=== PATIENT | female | born 2000 | race Two or more races ===

== ENCOUNTER 2022-09-22 15:10 | Outpatient (REF) | payer OTHER, SELFPAY ==
[2022-09-22 15:49] LABS: COVID-19 Test Negative (Negative)
== END 2022-09-22 15:11 | disposition home or self-care (01) ==
LOC: HO.LAB 15:10
PROVIDERS: Visit Provider Internal Medicine
DX: Z20.822 Contact with and (suspected) exposure to COVID-19 (principal)
CPT/HCPCS: 87635; C9803

== ENCOUNTER 2023-08-22 15:37 | Outpatient (AMB) | payer OTHER, SELFPAY ==
[2023-08-22 16:30] VITALS: BP 124/82; PULSE 104; TEMP 36.7; O2SAT 98; BMI 40.0
--- NOTE | 2023-08-22 16:30 | AM.OFFWIN_ITS ---
Intake Vital Signs 08/22/23 16:30 Height 4 ft 11 in Weight 198 lb 4 oz BMI 40.0 BP 124/82 Blood Pressure Location Rt brachial Position Sitting Pulse 104 H Pulse Source Pulse Oximeter Temp 98.1 F Temp Source Oral Pulse Oximetry (%) 98 Oxygen Delivery Method Room Air Intake Visit Reasons: EP, headache, nausea [phone] Intake Note: Pt presents to the office today for c/o headache,tiredness, and nausea. Pt states she also is 5 days late for her menstrual cycle. Allergies No Known Allergies [No Known Allergies*] Allergy (Unverified 08/25/23 05:30) Medication List - Last Reconciled 08/25/23 by Alex Burgess MD pantoprazole 40 mg PO DAILY HPI EP, headache, nausea [phone] HPI Details 22-year-old female presents to the [facility] for a sick visit. Patient works at the local [employer]. She is complaining of epigastric dis comfort, nausea and headaches. Reports symptoms of belching and burping. She is also 5 days late for the onset of her menstrual cycle. [facility] Social History Household Members: Significant Other and Children Housing: Apartment Alcohol intake: never Patient Tobacco Use Status: Never used Tobacco Use of substances other than those prescribed or required for medical reasons: Yes Substance Use Type: Marijuana Physical Exam Vital Signs: Last Vital Signs Temp 98.1 F 08/22/23 16:30 Pulse 104 H 08/22/23 16:30 BP 124/82 08/22/23 16:30 Pulse Ox 98 08/22/23 16:30 Oxygen Delivery Method Room Air 08/22/23 16:30 BMI result Body Mass Index 40.0 Const General: cooperative and healthy appearing Nutritional Appearance: well nourished Orientation/consciousness: patient oriented x3 Limitations: no limitations HEENT Head: Yes normal to inspection Eyes General: appearance normal, both eyes and all related structures Neck Neck: Yes normal visual inspection Chest Chest palpation & inspection: normal palpation of entire chest wall Resp Effort & Inspection: normal respiratory effort Neuro General: patient oriented x3 Results AMB Test Urine AMB Test Urine Negative Last Edit by Coby Gómez MA on 08/22/23 16:42 AMB Urinalysis, Automated UA Leukoctes 70 Rubi/uL Last Edit by Coby Gómez MA on 08/22/23 16:43 UA Nitrite Negative Last Edit by Coby Gómez MA on 08/22/23 16:43 UA Urobilinogen 0.2 mg/dL Last Edit by Coby Gómez MA on 08/22/23 16:43 UA Protein 0 mg/dL Last Edit by Coby Gómez MA on 08/22/23 16:43 UA pH 6.0 Last Edit by Coby Gómez MA on 08/22/23 16:43 UA Blood 10 Saurabh/uL Last Edit by Coby Gómez MA on 08/22/23 16:43 UA Specific [place] 1.025 Last Edit by Coby Gómez MA on 08/22/23 16:43 UA Ketone Positive Last Edit by Coby Gómez MA on 08/22/23 16:43 UA Bilirubin 0 mg/dL Last Edit by Coby Gómez MA on 08/22/23 16:43 UA Glucose 0 mg/dL Last Edit by Coby Gómez MA on 08/22/23 16:43 Results Reviewed Results Reviewed: Laboratory Last Values Urine pH (Auto) 6.0 08/22/23 16:40 Specific [place] (Auto) 1.025 08/22/23 16:40 Urine Protein (Auto) 0 mg/dL 08/22/23 16:40 Glucose (UA)(Auto) 0 mg/dL 08/22/23 16:40 Urine Ketones (Auto) Positive 08/22/23 16:40 Urine Blood (Auto) 10 Saurabh/uL 08/22/23 16:40 Urine Nitrite (Auto) Negative 08/22/23 16:40 Urine Bilirubin (Auto) 0 mg/dL 08/22/23 16:40 Urine Urobilinogen (Auto) 0.2 mg/dL 08/22/23 16:40 Leukocyte Esterase (Auto) 70 Rubi/uL 08/22/23 16:40 [facility] Negative 08/22/23 16:40 Assessment & Plan Assessment & Plan (1) Abdominal pain: Code(s): R10.9 - Unspecified abdominal pain Plan: Symptoms could be due to gastritis. PPI started. Patient was advised to take medications for 2 weeks. Symptoms do not improve or are progressively worsening to follow-up here. (2) Secondary amenorrhea: Code(s): N91.1 - Secondary amenorrhea Plan: test is negative. 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 Orders: Orders AMB HCG Urine Test 08/22/23 Z32.02 - Encounter for test, result negative AMB Urinalysis Automated 08/22/23 Z13.9 - Encounter for screening, unspecified Medications: New pantoprazole 40 mg PO DAILY 14 tabs 0RF Coding Level of Care Code Est Pt Level 3 (06695) Diagnoses Abdominal pain R10.9 Secondary amenorrhea N91.1
== END 2023-08-22 16:58 | disposition home or self-care (01) ==
PROVIDERS: PCP Internal Medicine
DX: Z32.02 Encounter for pregnancy test, result negative (principal); R10.9 Unspecified abdominal pain
CPT/HCPCS: 81003; 81025; 99213

== ENCOUNTER 2023-09-08 14:14 | Outpatient (AMB) | payer OTHER, SELFPAY ==
[2023-09-08 14:18] VITALS: BP 112/82; BMI 37.6
--- NOTE | 2023-09-08 14:18 | A.OFFVIS_ITS ---
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 She is happy about the she has been having a lot of nausea the last couple of days so she would like some medication for that. She delivered her 1st baby with us in October of 2019. She said she got very good care and so she was very sad to hear the birthing center closed and she cried over. She said she had absolutely no complications at all during her other than she was 2 weeks late and she was being induced for her delivery and it was taking a very long time she was stuck at 8 cm for a while and then when she did deliver she had a hemorrhage and her placenta was stuck and the doctor had to reaches hand way up inside to get everything out and she had a QBL of 900 is cc per the record and she received a blood transfusion she says of 2 units. She had no complications before that or since. She has a sure LMP of 07/16/2023 which makes her 7 weeks and 5 days today and yields an HETAL of 04/22/2024. She has been having some cramping sort of to her right side but no pain. She would be interested in of confirmation all ultrasound. In discussing options for care available to her I discussed the option of receiving care here and the certainty that she would be delivering at [facility] with the care of providers there and that she would be at some risk for a hemorrhage this time but per her description a did not sound like there was any risk that was inherent in her . In discussing options for care other options include receiving all of her care and delivery and getting to know the team that would be involved in her delivery at [facility]. The patient voiced a preference for this and she would like to get to know the providers ahead of time so that it is not an unknown factor when she does deliver. I also reviewed how she is feeling in this and she desires a medication for nausea so I am going to give her prescription for vitamin B6 and Unisom and a prescription for vitamins as well. And I am giving you the list of practices at [facility] so she can start calling and making her decision but we will see her and it can be a tele visit after the dating ultrasound just for confirmation. If any emergencies occur her we would recommend that she seek care at [facility] Social History Household Members: Significant Other and Children Housing: Apartment Alcohol intake: never Patient Tobacco Use Status: Never used Tobacco Substance Use Type: Marijuana Female Reproductive History Menstrual Age of Menarche: 13 Duration of menses: 3-5 days Date of last menstrual period: 07/16/23 control method: none Total pregnancies: 2 Full term: 1 Number of Living Children: 1 Physical Exam Vital Signs: Last Vital Signs BP 112/82 09/08/23 14:18 BMI result Body Mass Index 37.6 Results AMB Test Urine AMB Test Urine Positive Last Edit by EAGLE Kwon on 09/08/23 14:25 Results Reviewed Results Reviewed: Laboratory Last Values [facility]st Clinic Positive 09/08/23 14:25 Assessment & Plan Assessment & Plan (1) Positive urine test: Code(s): Z32.01 - Encounter for test, result positive Plan Patient is here for test consultation visit. She is happy about the she has been having a lot of nausea the last couple of days so she would like some medication for that. She delivered her 1st baby with us in October of 2019. She said she got very good care and so she was very sad to hear the birthing center closed and she cried over. She said she had absolutely no complications at all during her other than she was 2 weeks late and she was being induced for her delivery and it was taking a very long time she was stuck at 8 cm for a while and then when she did deliver she had a hemorrhage and her placenta was stuck and the doctor had to reaches hand way up inside to get everything out and she had a QBL of 900 is cc per the record and she received a blood transfusion she says of 2 units. She had no complications before that or since. She has a sure LMP of 07/16/2023 which makes her 7 weeks and 5 days today and yields an HETAL of 04/22/2024. She has been having some cramping sort of to her right side but no pain. She would be interested in of confirmation all ultrasound. In discussing options for care available to her I discussed the option of receiving care here and the certainty that she would be delivering at [facility] with the care of providers there and that she would be at some risk for a hemorrhage this time but per her description a did not sound like there was any risk that was inherent in her . In discussing options for care other options include receiving all of her care and delivery and getting to know the team that would be involved in her delivery at [facility]. The patient voiced a preference for this and she would like to get to know the providers ahead of time so that it is not an unknown factor when she does deliver. I also reviewed how she is feeling in this and she desires a medication for nausea so I am going to give her prescription for vitamin B6 and Unisom and a prescription for vitamins as well. And I am giving you the list of practices at [facility] so she can start calling and making her decision but we will see her and it can be a tele visit after the dating ultrasound just for confirmation. If any emergencies occur her we would recommend that she seek care at [facility] Orders: Orders US OB <= 14 weeks fetus Today Z32.01 - Encounter for test, result positive AMB HCG Urine Test Today Z32.01 - Encounter for test, result positive Medications: New PNV,calcium 10-ehnf-phivx acid 27 mg iron- 1 mg ( Vitamins Plus Low Iron) 1 tab PO DAILY 90 tabs 0RF pyridoxine (vitamin B6) 25 mg PO TID 90 tabs 0RF doxylamine succinate (Unisom (doxylamine)) 25 mg PO BEDTIME PRN 30 tabs 0RF sleep Coding Level of Care Code Est Pt Level 3 (47169) Diagnoses Positive urine test Z32.01
== END 2023-09-08 15:29 | disposition home or self-care (01) ==
LOC: HO.HWS 14:14
PROVIDERS: PCP Internal Medicine; Visit Provider Advanced Practice Midwife
DX: Z32.01 Encounter for pregnancy test, result positive (principal)
CPT/HCPCS: 99213

== ENCOUNTER → 2023-09-08 14:14 | Outpatient (BNVA) | payer OTHER, SELFPAY | PROVIDERS: PCP Internal Medicine; Visit Provider Advanced Practice Midwife | DX: Z32.01 Encounter for pregnancy test, result positive (principal) | CPT/HCPCS: 81025; 99212 ==

== ENCOUNTER 2023-09-11 12:42 | Emergency (ER) | payer OTHER, SELFPAY ==
--- NOTE | ~2023-09-11 | US_ITS ---
EXAMINATION: US OBSTETRICAL ULTRASOUND CLINICAL INFORMATION: Early , nausea COMPARISON: None available. LMP: Uncertain. Gestational age by maternal dates is unclear. Estimated date of delivery by maternal dates is clear. TECHNIQUE: Transvesical FINDINGS: There is a single intrauterine gestational sac with visible yolk sac, embryo/fetus, and cardiac activity. There is no significant subchorionic hemorrhage or hematoma. HR: 118 beats per minute. CRL (crown rump length): 0.67 cm (6 weeks 1 day +/- 4 days). HETAL (estimated date of delivery): 05/05/2024 +/- 4 days. MATERNAL ADNEXA: The right maternal ovary measures 3.0 x 1.5 x 1.9 cm. No additional findings The left maternal ovary measures 4.0 x 2.5 x 2.5 cm. No additional findings There is no significant maternal adnexal mass. No maternal pelvic ascites. US/US OB <= 14 weeks fetus IMPRESSION: 1. Single intrauterine gestation with ultrasound gestational age of 6 weeks 1 day +/- 4 days. 2. Estimated date of delivery is 05/08/2024 +/- 4 days. 3. No maternal adnexal mass or pelvic ascites.
--- NOTE | ~2023-09-11 | US_ITS ---
EXAMINATION: US ABDOMEN LIMITED CLINICAL INFORMATION: 22-year-old female with upper abdominal pain questionable stone. COMPARISON: 01/31/2020 TECHNIQUE: Real-time imaging of the right upper quadrant abdominal viscera. FINDINGS: PANCREAS: Normal. LIVER: Normal. The liver is normal in size. The liver contour is normal. Parenchymal echogenicity is normal. No focal hepatic lesion. There is no intrahepatic biliary duct dilatation seen. GALLBLADDER: There are multiple mobile small gallstones seen. Gallbladder wall is not thickened, measuring 0.14 cm. Sonographic Medina's sign reported negative. There is no pericholecystic fluid collection. COMMON BILE DUCT: Normal in caliber measuring 0.2 cm in diameter. RIGHT KIDNEY: Normal. No hydronephrosis. No renal calculi or focal parenchymal lesions. The kidney measures 10.2 cm in maximum dimension. FREE FLUID: None. US/US abdomen limited IMPRESSION: Cholelithiasis
[2023-09-11 12:53] VITALS: BP 119/70; PULSE 74; RESP 18; TEMP 36.7; O2SAT 100; BMI 37.4
--- NOTE | 2023-09-11 13:01 | ED.GENADULT ---
HPI - General Adult General Chief complaint: Abdominal Pain Stated complaint: Weakness/abd pain-8 wks preg Time Seen by Provider: 09/11/23 13:30 Source: patient and RN notes reviewed Mode of arrival: ambulatory Limitations: no limitations History of Present Illness HPI narrative: This is a 22-year-old female , 8 week , female presenting to the emergency department with complaints of nausea, vomiting, the last 4 days. Patient denies any abdominal pain. Denies any fevers. She did endorse chills yesterday however this has since resolved. Patient has been followed by her OBGYN through [facility] but is being transferred to [facility] given high-risk as her last had placental problems. She did carry this baby full-term. She states that her current has been without any complications. Denies any urinary symptoms. Endorses some slight constipation, no diarrhea. No vaginal bleeding or discharge. She has been taking vitamin B6 per her OBGYN for recurrent nausea as this is not the 1st time this has happened to her. No other complaints or concerns at this time. MD complaint: Onset (ago): day(s) Radiation: non-radiation Relieving factors: none Associated symptoms: loss of appetite and nausea/vomiting Treatments prior to arrival: none Related Data Previous Rx's Medication Instructions Recorded pantoprazole 40 mg tablet,delayed 40 mg PO DAILY #14 tabs 08/22/23 release doxylamine succinate 25 mg tablet 25 mg PO BEDTIME PRN sleep #30 tabs 09/08/23 (Unisom (doxylamine)) vitamin with calcium 1 tab PO DAILY #90 tabs 09/08/23 no.72-iron 27 mg-folic acid 1 mg tablet ( Vitamins Plus Low Iron) pyridoxine (vitamin B6) 25 mg 25 mg PO TID #90 tabs 09/08/23 tablet Allergies Allergy/AdvReac Type Severity Reaction Status Date / Time No Known Allergies Allergy Verified 09/11/23 12:53 [No Known Allergies*] Review of Systems Review of Systems: Yes all other systems are reviewed and are negative Constitutional: Constitutional: Reports as per HPI [facility] Past Medical History Attestation statement: The following information was validated with the patient. Social History Social History Household Members: Significant Other and Children Housing: Apartment Alcohol intake: never Patient Tobacco Use Status: Never used Tobacco Substance Use Type: Marijuana Physical Exam ED Vital Signs: Vital Signs - 24 hr 09/11/23 18:30 Temperature 98.7 F Pulse Rate 70 Respiratory Rate 16 Blood Pressure 104/54 L Pulse Oximetry 99 Oxygen Delivery Method Room Air BMI result Body Mass Index 37.4 Const General: cooperative, comfortable and no acute distress Orientation/consciousness: patient oriented x3 Limitations: no limitations HENMT Head: Yes normal to inspection, Yes normocephalic and Yes atraumatic Ears: hearing grossly normal bilaterally General nose exam: Normal external nose present Face and sinus: Yes normal facial exam Mouth: Normal oral and palatal mucosa present, oropharynx normal and moist mucous membranes Throat: Yes posterior oropharynx normal Eyes General: appearance normal, both eyes and all related structures Eyelids: Yes eyelids normal Conjunctivae: conjunctivae normal Sclerae: sclerae normal Pupils: Equal, round and reactive pupils present EOM: EOMs intact bilaterally Neck Neck: Yes normal visual inspection, Yes full ROM and Yes no lymphadenopathy Lymphatic: no lymphadenopathy noted Chest Chest palpation & inspection: normal inspection of the chest Resp Effort & Inspection: normal respiratory effort and able to speak in complete sentences Auscultation: clear to auscultation bilaterally, no crackles, no rales, no rhonchi and no wheezes Cardio Rate: regular rate Rhythm: regular rhythm Heart sounds: S1 normal heart sound present and S2 normal heart sound present GI Other: abdomen is soft, nontender, nondistended. Normoactive bowel sounds present in all 4 quadrants. Inspection: Yes normal to inspection Skin General skin exam: no rashes or lesions noted Trauma: no lacerations or abrasions Wounds: no wounds Neuro General: patient oriented x3 and moves all extremities Cranial nerves: Yes Equal, round and reactive pupils present Extrem General: Yes normal to inspection Right upper extremity: normal to inspection Left upper extremity: normal to inspection Right lower extremity: normal to inspection Left lower extremity: normal to inspection Course Course Course Narrative: RME: 22 yold female 8 weeks pregant presents to the ED for nausea, vomitting, upper abdominal pain. no lower abdominal pain or vaginal bleeding. labs and US ordered Reevaluation(s) Reevaluation #1: Patient currently receiving IV fluids, feeling well, tolerating p.o.. Will await fluids to finish and re-evaluate. No current abdominal pain, not actively vomiting. ultrasound revealing single intrauterine gestation. abdominal ultrasound does show cholelithiasis, no biliary duct dilatation. Time: 19:54 Reevaluation #2: patient feeling well, symptoms have resolved, able to tolerate p.o. without vomiting. Urine appears contaminated. Will not treat for urinary tract infection at this time, given she is asymptomatic. Advised to follow-up with OBGYN tomorrow. Given return precautions. Cholelitahisis was also seen on the ultrasound, without any inflammation, patient has no tenderness in the right upper quadrant. discussed this finding with patient will follow-up with her primary care physician. Educated on adequate diet restrictions. She understands and agrees with plan. Stable for discharge. Time: 21:15 Medications Administered Discontinued Medications Generic Name Dose Route Start Last Admin Trade Name Freq PRN Reason Stop Dose Admin Sodium Chloride 1,000 mls @ 999 mls/hr 09/11/23 18:42 09/11/23 19:59 Ns IV 09/11/23 19:42 Infused .Q1H1M ONE Infusion Medical Decision Making Medical Decision Making [facility] Narrative: 22-year-old , 8 week female presenting to the emergency department complaints nausea, vomiting the last 4 days. She reports difficulty eating secondary to nausea and vomiting. 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 She has been taking vitamin B6 as prescribed through her OBGYN with minimal relief. On arrival, vital signs within normal limits. Patient is nontoxic appearing. abdomen is soft and nontender. Plan: labs, UA Differential Diagnosis Differential Diagnoses: The differential diagnosis associated with the presentation includes , ectopic , gastritis, hyperemesis gravidarium Admission/Observation Consideration of admission/observation: Escalation of care including admission/observation considered Patient would have been admitted to the hospital had her work up had any findings where hospital admission was appropriate and her clinical presentation warranted hospital admission. Lab Data [facility] Lab Attestation statement: I reviewed the patient's lab results. Slight leukocytosis at 12.3, likely reactive, no left shift. Chemistry nondiagnosticc 09/11/23 13:47 09/11/23 13:47 Labs: Lab Results 09/11/23 09/11/23 Range/Units 13:47 20:01 WBC 12.3 H (4.8-10.8) X10*3/uL RBC 4.81 (4.20-5.50) X10*6/uL Hgb 13.3 (12.0-16.0) g/dl Hct 39.4 (37.0-47.0) % MCV 81.9 (80.0-98.0) fL MCH 27.7 (27.0-33.0) pg MCHC 33.8 (31.0-35.0) g/dl RDW 12.5 (11.0-16.0) % Plt Count 375 (160-400) X10*3/uL MPV 8.8 L (9.4-12.3) fL Immature Gran % (Auto) 0.2 (0.0-0.4) % Neut % (Auto) 71.5 (45-73) % Lymph % (Auto) 21.6 (20-40) % Gordon % (Auto) 6.3 (2-11) % Eos % (Auto) 0.1 (0-4) % Baso % (Auto) 0.3 (0-2) % Lymph # (Auto) 2.7 (1.2-4.9) X10*3/uL Gordon # (Auto) 0.8 (0.1-1.2) X10*3/uL Eos # (Auto) 0.0 (0.0-0.4) X10*3/uL Baso # (Auto) 0.0 (0.0-0.2) X10*3/uL Abs Immat Gran (auto) 0.02 (0.00-0.03) X10*3/uL Absolute Neuts (auto) 8.8 H (2.0-8.3) x10*3/uL Absolute Nucleated RBC 0.000 (0.0-0.012) X10*3/uL Nucleated RBC % (auto) 0.0 (0.0-0.2) /100WBC Sodium 135 (135-145) mmol/L Potassium 3.7 (3.3-5.1) mmol/L Chloride 100 (96-108) mmol/L Carbon Dioxide 22 (22-29) mmol/L Anion Gap 17 (12-20) BUN 9 (9-16) mg/dL Creatinine 0.75 (0.5-1.4) mg/dL Estim Creat Clear Calc 108.7 Estimated GFR > 60 Random Glucose 74 (60-115) mg/dL Calcium 10.3 H (8.4-10.2) mg/dL Total Bilirubin 1.2 H (0.0-1.0) mg/dL AST 30 (5-31) U/L ALT 39 H (0-31) U/L Alkaline Phosphatase 55 (39-117) U/L Total Protein 8.1 H (6.5-8.0) g/dL Albumin 4.7 (3.5-5.0) g/dL Lipase 14 (8-78) U/L Beta HCG, Quant 90619 mIU/mL Urine Color Dark Yellow Urine Appearance Cloudy Urine pH 6.0 (5.0-9.0) Ur Specific [place] >= 1.030 H (1.005-1.025) Urine Protein Trace (Neg-Trace) mg/dL Urine Glucose (UA) Negative (Negative) mg/dL Urine Ketones >=160 (Negative) mg/dL Urine Blood Trace H (Negative) Urine Nitrite Negative (Negative) Ur Leukocyte Esterase Small (1+) H (Negative) Urine RBC 6-10 H (0-2) /HPF Urine WBC 11-20 H (0-5) /HPF Ur Squamous Epith Cells 11-20 (0-2) /HPF Urine Bacteria 4+ (None Seen) Hyaline Casts 0-2 (0-2) /LPF Urine Test POSITIVE H (NEGATIVE) Blood Type O Positive Radiology Impression Discussion of test interpretation with radiology: I have reviewed the radiologist's reading. Radiologist Impression: [place] [id number] Ultrasound Report Signed Patient: Angelica Tadeo MR#: [id number] : 2000 Acct:[id number] Age/Sex: 22 / F ADM Date: 09/11/23 Loc: HO.ED Attending Dr: Ordering Physician: Curry Kebede Date of Service: 09/11/23 Procedure(s): US abdomen limited Accession Number(s): [id number] cc: Curry Kebede; Mae Odell MD~ EXAMINATION: US ABDOMEN LIMITED CLINICAL INFORMATION: 22-year-old female with upper abdominal pain questionable stone. COMPARISON: 01/31/2020 TECHNIQUE: Real-time imaging of the right upper quadrant abdominal viscera. FINDINGS: PANCREAS: Normal. LIVER: Normal. The liver is normal in size. The liver contour is normal. Parenchymal echogenicity is normal. No focal hepatic lesion. There is no intrahepatic biliary duct dilatation seen. GALLBLADDER: There are multiple mobile small gallstones seen. Gallbladder wall is not thickened, measuring 0.14 cm. Sonographic Medina's sign reported negative. There is no pericholecystic fluid collection. COMMON BILE DUCT: Normal in caliber measuring 0.2 cm in diameter. RIGHT KIDNEY: Normal. No hydronephrosis. No renal calculi or focal parenchymal lesions. The kidney measures 10.2 cm in maximum dimension. FREE FLUID: None. US/US abdomen limited IMPRESSION: Cholelithiasis Dictated By: Gia Hastings MD EXAMINATION: US OBSTETRICAL ULTRASOUND CLINICAL INFORMATION: Early , nausea COMPARISON: None available. LMP: Uncertain. Gestational age by maternal dates is unclear. Estimated date of delivery by maternal dates is clear. TECHNIQUE: Transvesical FINDINGS: There is a single intrauterine gestational sac with visible yolk sac, embryo/fetus, and cardiac activity. There is no significant subchorionic hemorrhage or hematoma. HR: 118 beats per minute. CRL (crown rump length): 0.67 cm (6 weeks 1 day +/- 4 days). HETAL (estimated date of delivery): 05/05/2024 +/- 4 days. MATERNAL ADNEXA: The right maternal ovary measures 3.0 x 1.5 x 1.9 cm. No additional findings The left maternal ovary measures 4.0 x 2.5 x 2.5 cm. No additional findings There is no significant maternal adnexal mass. No maternal pelvic ascites. US/US OB <= 14 weeks fetus IMPRESSION: 1. Single intrauterine gestation with ultrasound gestational age of 6 weeks 1 day +/- 4 days. 2. Estimated date of delivery is 05/08/2024 +/- 4 days. 3. No maternal adnexal mass or pelvic ascites. Dictated By: Gia Hastings MD Discharge Plan Discharge Clinical Impression: , Nausea and vomiting during , Cholelithiasis Patient Disposition: Home, Self-Care Instructions: (ED), Hyperemesis Gravidarum (ED), Gallstones (ED), Acute Nausea and Vomiting (ED) Additional Instructions: Your ultrasound was normal. Your blood work was reassuring. You do have gallstones. Stick to a bland diet Please follow-up with your OBGYN. call tomorrow to make appointment. If any new or worsening symptoms occur, Including but not limited to abdominal pain, fevers, chills, inability to eat or drink, please return for re-evaluation. Prescriptions: No Action pantoprazole 40 mg tablet,delayed release (DR/EC) 40 mg PO DAILY Qty: 14 0RF Vitamin Plus Low Iron 27 mg iron- 1 mg tablet 1 tab PO DAILY Qty: 90 0RF pyridoxine (vitamin B6) 25 mg tablet 25 mg PO TID Qty: 90 0RF Unisom (doxylamine) 25 mg tablet 25 mg PO BEDTIME PRN (Reason: sleep) Qty: 30 0RF Stand Alone Forms: Work/School Release Interventions: ED Discharge Assessment Last Done: 09/11/23 21:40 Discharge Date/Time: 09/11/23 21:41
[2023-09-11 13:53] LABS: MANUAL DIFF FLAG NO
[2023-09-11 13:57] LABS: Basophils Percent Auto 0.3 % (0-2); Eosinophils Percent Auto 0.1 % (0-4); Hematocrit 39.4 % (37.0-47.0); Hemoglobin 13.3 g/dl (12.0-16.0); Imm Gran Abs Auto 0.02 X10*3/uL (0.00-0.03); Imm Gran Pct Auto 0.2 % (0.0-0.4); Lymphocytes Absolute Auto 2.7 X10*3/uL (1.2-4.9); Lymphocytes Percent Auto 21.6 % (20-40); Mean Corpuscular HGB Conc 33.8 g/dl (31.0-35.0); Mean Corpuscular Hemoglobin 27.7 pg (27.0-33.0); Mean Corpuscular Volume 81.9 fL (80.0-98.0); Mean Platelet Volume 8.8 fL (9.4-12.3); Monocytes Absolute Auto 0.8 X10*3/uL (0.1-1.2); Monocytes Percent Auto 6.3 % (2-11); Neutrophils Absolute Auto 8.8 x10*3/uL (2.0-8.3); Neutrophils Percent Auto 71.5 % (45-73); Platelet Count 375 X10*3/uL (160-400); Red Blood Count 4.81 X10*6/uL (4.20-5.50); Red Cell Distribution Width 12.5 % (11.0-16.0); White Blood Count 12.3 X10*3/uL (4.8-10.8)
[2023-09-11 14:20] LABS: Alanine Aminotransferase 39 U/L (0-31); Albumin Level 4.7 g/dL (3.5-5.0); Alkaline Phosphatase 55 U/L (39-117); Anion Gap 17 (12-20); Aspartate Amino Transferase 30 U/L (5-31); Bilirubin Total 1.2 mg/dL (0.0-1.0); Blood Urea Nitrogen 9 mg/dL (9-16); Calcium 10.3 mg/dL (8.4-10.2); Carbon Dioxide 22 mmol/L (22-29); Chloride 100 mmol/L (96-108); Creatinine Clr Calc Pharmacy 108.7; Estimated Glomerular Filt Rate > 60; Glucose Random 74 mg/dL (60-115); Lipase 14 U/L (8-78); Potassium 3.7 mmol/L (3.3-5.1); Sodium 135 mmol/L (135-145); Total Protein 8.1 g/dL (6.5-8.0)
[2023-09-11 14:38] LABS: HCG Quantitative 68499 mIU/mL
[2023-09-11 18:30] VITALS: BP 104/54; PULSE 70; RESP 16; TEMP 37.1; O2SAT 99
[2023-09-11] MEDS: 0.9 % Sodium Chloride 1,000 ML 999 ML IV (18:48)
[2023-09-11 20:11] LABS: Appearance Urine Cloudy; Color Urine Dark Yellow; Glucose Urine UA Negative (Negative); Leukocyte Esterase Urine Small (1+) (Negative); Nitrite Urine Negative (Negative); Specific Gravity - Urine >= 1.030 (1.005-1.025); UMIC TRIGGER UACC YES; UPreg QC Valid YES; Urine Blood Trace (Negative); Urine Ketones >=160 mg/dL (Negative); Urine Pregnancy POSITIVE (NEGATIVE); Urine Protein Trace mg/dL (Neg-Trace)
[2023-09-11 20:13] LABS: Bacteria Urine 4+ (None Seen); Hyaline Casts Urine 0-2 /LPF (0-2); UACC Culture Trigger YES
== END 2023-09-11 21:41 | disposition home or self-care (01) ==
PROVIDERS: Physician Assistant; Emergency Provider Emergency Medicine; PCP Internal Medicine
DX: O21.0 Mild hyperemesis gravidarum (principal); K80.20 Calculus of gallbladder without cholecystitis without obstruction; Z3A.08 8 weeks gestation of pregnancy; Z79.899 Other long term (current) drug therapy
CPT/HCPCS: 36415; 76705; 76801; 80053; 81001; 81025; 83690; 84702; 85025; 86900; 86901; 87086; 96360; 99284

== ENCOUNTER 2023-09-13 13:28 | Outpatient (REF) | payer OTHER, SELFPAY | END 2023-09-13 13:29 | disposition home or self-care (01) | LOC: HO.US 13:28 | PROVIDERS: PCP Internal Medicine; Visit Provider Advanced Practice Midwife | DX: Z13.89 Encounter for screening for other disorder (principal) ==

== ENCOUNTER 2023-09-19 12:27 | Outpatient (AMB) | payer OTHER, SELFPAY ==
--- NOTE | 2023-09-19 12:28 | A.OFFVIS_ITS ---
Intake Intake Visit Reasons: tv ultra sound follow up/ok per [facility] Coordinator Required: No Allergies No Known Allergies [No Known Allergies*] Allergy (Verified 09/19/23 12:28) Medication List - Last Reconciled 09/19/23 by Magalie Jarvis CNM doxylamine succinate (Unisom (doxylamine)) 25 mg PO BEDTIME PRN pantoprazole 40 mg PO DAILY PNV,calcium 96-iyfz-jgskk acid 27 mg iron- 1 mg ( Vitamins Plus Low Iron) 1 tab PO DAILY pyridoxine (vitamin B6) 25 mg PO TID Is last menstrual period known: No Post menopausal: No Patient : Yes HPI tv ultra sound follow up/ok per Aidyn HPI Details This is a telephone visit for patient to review her ultrasound. The ultrasound was done on September 11 it was done for dating. (I had ordered an dating ultrasound but she went to the ER on 09/11 and so an ultrasound was done as part of that visit there so that was the ultrasound that was being reviewed today). She had gone there because she was throwing up and felt dehydrated they told her that she had gallstones. New told her there was not anything she could do other than eat really well and take care of herself. They told her she was 6 weeks and 2 days but they charted 6 weeks and 1 day on the ultrasound and giving and HETAL of 713 further written document. The patient had considered and had told this provider that she wanted to go to [facility] so she could get to know all the providers before her delivery but she said that when she called they told her there were not any openings till October and she does not think she wants to wait that long and she thinks she would rather stay with us anyway she is going to hang up from my phone call with her and [facility] and if she is able to get an appointment for September then she will take that otherwise she will call back and schedule an search director for this month so that we can initiate care and order her nuchal translucency in time. She tells me she still throwing up sometimes but on the other hand she had an Esa Allen with broccoli today and it stay down and she is doing fine yesterday she did throw up more. She in general is trying to not eat anything greasy since the ER visit and the do discovery of the gallstones. Her only complication in the last was at delivery with a retained placenta requiring removal and transfusion. She had no complications. She is endeavoring to try any well and will see how she does with the vitamin B6 and will let us know if she needs something more. [facility] Household Members: Significant Other and Children Housing: Apartment Alcohol intake: never Patient Tobacco Use Status: Never used Tobacco Substance Use Type: Marijuana Patient : Yes Female Reproductive History Menstrual Age of Menarche: 13 control method: none Total pregnancies: 2 Full term: 1 Number of Living Children: 1 Results Reviewed Results Reviewed: [place] [id number] Ultrasound Report Signed Patient: Angelica Tadeo MR#: [id number] : 2000 Acct:[id number] Age/Sex: 22 / F ADM Date: 09/11/23 Loc: .ED Attending Dr: Ordering Physician: Curry Kebede Date of Service: 09/11/23 Procedure(s): US OB <= 14 weeks fetus Accession Number(s): [id number] cc: Curry Kebede; Mae Odell MD~ EXAMINATION: US OBSTETRICAL ULTRASOUND CLINICAL INFORMATION: Early , nausea COMPARISON: None available. LMP: Uncertain. Gestational age by maternal dates is unclear. Estimated date of delivery by maternal dates is clear. TECHNIQUE: Transvesical FINDINGS: There is a single intrauterine gestational sac with visible yolk sac, embryo/fetus, and cardiac activity. There is no significant subchorionic hemorrhage or hematoma. HR: 118 beats per minute. CRL (crown rump length): 0.67 cm (6 weeks 1 day +/- 4 days). HETAL (estimated date of delivery): 05/05/2024 +/- 4 days. MATERNAL ADNEXA: The right maternal ovary measures 3.0 x 1.5 x 1.9 cm. No additional findings The left maternal ovary measures 4.0 x 2.5 x 2.5 cm. No additional findings There is no significant maternal adnexal mass. No maternal pelvic ascites. US/US OB <= 14 weeks fetus IMPRESSION: 1. Single intrauterine gestation with ultrasound gestational age of 6 weeks 1 day +/- 4 days. 2. Estimated date of delivery is 05/08/2024 +/- 4 days. 3. No maternal adnexal mass or pelvic ascites. Dictated By: Gia Hastings MD Signed By: <Electronically signed by Gia Hastings MD in OV> 09/11/23 1700 DD/ 1630 TD/TT: Sheltered [employer] Worker: Patient: Angelica Tadeo MR#: [id number] : 2000 Acct:[id number] Age/Sex: 22 / F ADM Date: 09/11/23 Loc: HO.ED Attending Dr: Ordering Physician: Curry Kebede Date of Service: 09/11/23 Procedure(s): US abdomen limited Accession Number(s): [id number] cc: Curry Kebede; Mae Odell MD~ EXAMINATION: US ABDOMEN LIMITED CLINICAL INFORMATION: 22-year-old female with upper abdominal pain questionable stone. COMPARISON: 01/31/2020 TECHNIQUE: Real-time imaging of the right upper quadrant abdominal viscera. FINDINGS: PANCREAS: Normal. LIVER: Normal. The liver is normal in size. The liver contour is normal. Parenchymal echogenicity is normal. No focal hepatic lesion. There is no intrahepatic biliary duct dilatation seen. GALLBLADDER: There are multiple mobile small gallstones seen. Gallbladder wall is not thickened, measuring 0.14 cm. Sonographic Medina's sign reported negative. There is no pericholecystic fluid collection. COMMON BILE DUCT: Normal in caliber measuring 0.2 cm in diameter. RIGHT KIDNEY: Normal. No hydronephrosis. No renal calculi or focal parenchymal lesions. The kidney measures 10.2 cm in maximum dimension. FREE FLUID: None. US/US abdomen limited IMPRESSION: Cholelithiasis Dictated By: Gia Hastings MD Signed By: <Electronically signed by Gia Hastings MD in OV> 09/11/23 1656 DD/ 1630 Assessment & Plan Assessment & Plan (1) Positive urine test: Code(s): Z32.01 - Encounter for test, result positive (2) Early stage of : Comment: 09/11/2023 ultrasound shows 6 weeks and 1 day HETAL 05/05/2024. Code(s): Z34.90 - Encounter for supervision of normal , unspecified, unspecified trimester (3) Gallstone: Comment: DX at 09/11/23 ER visit Code(s): K80.20 - Calculus of gallbladder without cholecystitis without obstruction Plan This is a telephone visit for patient to review her ultrasound. The ultrasound was done on September 11 it was done for dating. (I had ordered an dating ultrasound but she went to the ER on 09/11 and so an ultrasound was done as part of that visit there so that was the ultrasound that was being reviewed today). She had gone there because she was throwing up and felt dehydrated they told her that she had gallstones. New told her there was not anything she could do other than eat really well and take care of herself. They told her she was 6 weeks and 2 days but they charted 6 weeks and 1 day on the ultrasound and giving and HETAL of 713 further written document. The patient had considered and had told this provider that she wanted to go to [facility] so she could get to know all the providers before her delivery but she said that when she called they told her there were not any openings till October and she does not think she wants to wait that long and she thinks she would rather stay with us anyway she is going to hang up from my phone call with her and [facility] and if she is able to get an appointment for September then she will take that otherwise she will call back and schedule an search director for this month so that we can initiate care and order her nuchal translucency in time. She tells me she still throwing up sometimes but on the other hand she had an Esa Allen with broccoli today and it stay down and she is doing fine yesterday she did throw up more. She in general is trying to not eat anything greasy since the ER visit and the do discovery of the gallstones. Her only complication in the last was at delivery with a retained placenta requiring removal and transfusion. She had no complications. She is endeavoring to try any well and will see how she does with the vitamin B6 and will let us know if she needs something more. Telehealth Telehealth Location of provider rendering services: practice address Location of patient: other (work) Patient Identification confirmed using: Name, : Yes Telehealth method: voice only Patient verbally consented to treatment: Yes Patient verbally consented to billing insurance company: Yes Patient informed of any privacy concerns related to visit: Yes Coding Level of Care Code Tele Est Pt Level 3 (80641) Diagnoses Positive urine test Z32.01 Early stage of Z34.90 Gallstone K80.20
== END 2023-09-19 13:45 | disposition home or self-care (01) ==
LOC: HO.HWS 12:27
PROVIDERS: PCP Internal Medicine; Visit Provider Advanced Practice Midwife
DX: O26.611 Liver and biliary tract disorders in pregnancy, first trimester (principal); K80.20 Calculus of gallbladder without cholecystitis without obstruction; Z3A.01 Less than 8 weeks gestation of pregnancy
CPT/HCPCS: 99213

== ENCOUNTER → 2023-09-19 12:27 | Outpatient (BNVA) | payer OTHER, SELFPAY | PROVIDERS: PCP Internal Medicine; Visit Provider Advanced Practice Midwife ==

== ENCOUNTER 2023-11-10 10:38 | Outpatient (AMB) | payer OTHER, SELFPAY ==
[2023-11-10 10:41] VITALS: BP 120/74; BMI 38.4
--- NOTE | 2023-11-10 10:41 | MHC.PC.OV ---
Vital Signs 11/10/23 10:41 Height 4 ft 11 in Weight 190 lb BMI 38.4 BP 120/74 Blood Pressure Location Lt brachial Position Sitting Intake Visit Reasons: New patient, Physical Exam Intake Note: New patient, physical exam Business Process Representative Required: No Accompanied by: Self / Same As Patient Allergies No Known Allergies [No Known Allergies*] Allergy (Verified 11/10/23 10:59) Medication List - Last Reconciled 11/10/23 by Mae Bernabe MD PNV,calcium 56-cetn-pnmqm acid 27 mg iron- 1 mg ( Vitamins Plus Low Iron) 1 tab PO DAILY Tobacco use date assessed: 11/10/23 Dental Screening Dental Screen Date: 11/10/23 Did you have a dental visit in the last 12 months?: Yes Did you have a dental problem in the last 6 months where you did not have access to dental care?: No Was dental information given to patient?: Patient has dentist HPI HPI Comments History of Present Illness Details This is a 22-year-old female that comes for her physical exam. She is 14 weeks of her 2nd child. No chest pain or shortness of breath. No fever or cough. Doing well. Pap smear up to date as per patient. [facility] Surgical History No pertinent past surgical history Family History Mother Asthma Father No problems noted. Social History Household Members: Significant Other and Children Housing: Apartment Alcohol intake: never Patient Tobacco Use Status: Never used Tobacco e-Cigarette/Vaping Use: Never Used Second Hand Smoke Exposure: No Substance Use Type: Marijuana service: No Current occupational status: employed Current occupational exposures/hazards: No Cognitive needs: No Hearing needs: No Vision needs: No Female Reproductive History Menstrual Age of Menarche: 13 Questionnaire PHQ-9 Over the last 2 weeks, how often have you been bothered by any of the following problems? 1. Little interest or pleasure in doing things: not at all 2. Feeling down, depressed, or hopeless: not at all 3. Trouble falling or staying asleep, or sleeping too much: not at all 4. Feeling tired or having little energy: not at all 5. Poor appetite or overeating: not at all 6. Feeling bad about yourself - or that you are a failure or have let yourself or your family down: not at all 7. Trouble concentrating on things, such as reading the newspaper or watching television: not at all 8. Moving or speaking so slowly that other people could have noticed. Or the opposite - being so fidgety or restless that you have been moving around a lot more than usual: not at all 9. Thoughts that you would be better off or of hurting yourself in some way: not at all Total score: 0 Depression Screening Interpretation: Negative Depression Screening Done: Yes 11132 - PHQ-9 Billing: Yes Source: Developed by Drs. Dragan Hooks, Hoa Henderson, Blaze Moyer and colleagues, with an educational josette from [employer]. Thrive Questionnaire Date Thrive assessed: 11/10/23 I am a: Patient What is your living situation today?: I have a steady place to live Within the past 12 months, did the food you bought not last and you didn't have the money to get more?: Never true Within the past 12 months, did you worry whether your food would run out before you got money to buy more?: Never true Do you have trouble paying for medicines?: No Do you have trouble getting transportation to medical appointments?: No Do you have trouble paying your heating and electricity bill?: No Do you have trouble taking care of your child, family member or friend?: No Do you have trouble with day-to-day activities such as bathing, preparing meals, shopping, managing finances, etc.?: No Are you currently unemployed and looking for a job?: No Are you interested in more education?: No Please select the resources that you would like help with: None Currently or been in a relationship where the following occur: no concerns reported AUDIT C Alcohol Use Questionnaire (AUDIT-C) 1. How often do you have a drink containing alcohol?: Never Total Score: 0 JAMSHID-7 AMB Questionnaire JAMSHID-7 Date JAMSHID - 7 assessed: 11/10/23 Feeling nervous, anxious, or on edge: 0 = Not at all Not being able to stop or control worryin = Not at all Worrying too much about different things: 0 = Not at all Trouble relaxin = Not at all Being so restless that it is hard to sit still: 0 = Not at all Becoming easily annoyed or irritable: 0 = Not at all Feeling afraid as if something awful might happen: 0 = Not at all Total JAMSHID-7 score (0-4 normal; 5-9 mild; 10-14 moderate; 15-21 severe): 0 Source: Developed by Drs. Dragan Hooks, Hoa Henderson, Blaze Moyer and colleagues, with an educational josette from [employer]. JAMSHID-7 Assessment Billing JAMSHID-7 Assessment Tool: JAMSHID-7 Assessment 43260 Review of Systems Const All systems reviewed & are unremarkable except as noted in HPI and below Eyes Reports no additional complaints, Denies change in vision and Denies other visual disturbances Card Denies chest pain at rest, Denies chest pain with activity, Denies edema, Denies irregular heart rhythm, Denies claudication, Denies dyspnea, Denies dyspnea on exertion, Denies orthopnea, Denies paroxysmal nocturnal dyspnea and Denies slow heart rate Resp Denies cough, Denies dyspnea and Denies dyspnea on exertion GI Denies abdominal pain, Denies change in bowel habits, Denies excessive flatus, Denies nausea and Denies vomiting Denies urinary incontinence, Denies urinary hesitancy and Denies urinary urgency Musc Denies abnormal gait, Denies atrophy, Denies deformity and Denies limited range of motion Skin/Breast Denies bleeding lesions, Denies changing lesions and Denies rash Neuro Denies abnormal gait, Denies behavioral changes, Denies confusion and Denies lack of coordination Psych Denies behavioral changes and Denies confusion Physical exam (Primary Care) Vital Signs: Last Vital Signs BP 120/74 11/10/23 10:41 BMI result Body Mass Index 38.4 Tobacco/Smoking Status: Tobacco use Status Tobacco use date assessed 11/10/23 11/10/23 10:46 Patient Tobacco Use Status Never used Tobacco 11/10/23 10:46 e-Cigarette/Vaping Use Never Used 11/10/23 10:46 PHQ-9: PHQ-9 Score PHQ-9: Total score 0 11/10/23 11:08 Depression Screening Interpretation: Negative Thrive Assessment: Date of Thrive Assessment Date Thrive assessed 11/10/23 11/10/23 10:46 Currently or been in a relationship where the following occur: no concerns reported Const General: No confusion Orientation/consciousness: patient oriented x3 and No confusion HENMT Head: Yes normal to inspection, Yes normocephalic and Yes atraumatic Ears: external ears normal Eyes General: appearance normal, both eyes and all related structures Eyelids: Yes eyelids normal Conjunctivae: conjunctivae normal Neck Neck: Yes normal visual inspection and Yes supple Resp Effort & Inspection: normal respiratory effort Auscultation: clear to auscultation bilaterally Cardio Jugular venous distension: no JVD Rate: regular rate Rhythm: regular rhythm Heart sounds: S1 normal heart sound present and S2 normal heart sound present GI Inspection: Yes normal to inspection Palpation (GI): Soft to palpation and nontender Auscultation: normal bowel sounds Skin General skin exam: no rashes or lesions noted Neuro General: patient oriented x3, no focal motor deficits and No confusion Extrem General: Yes full ROM Psych Appearance: grossly normal Office Procedures Flu Questionnaire Does the patient have a severe egg allergy?: No Does the patient have severe life threatening allergies?: No Does the patient have a fever or illness today?: No Has the patient ever had Guillain-Garnett Syndrome?: No Has the patient ever had any past reaction to a flu shot?: No Immunizations flu vacc [id number] 6mos up(PF) 60 mcg(15 mcgx4)/0.5 mL IM syringe Performing Provider: Mae Bernabe MD Performing Location: [facility] Administered by: EAGLE Aviles on 11/10/23 11:10 Dose Route Admin Location Dispensed Lot Number Expiration Date [employer] 0.5 mL IM Left Deltoid 0.5 mL [id number] 04/22/24 71411-745-96 [employer] VIS Given Date VIS Provided VIS Publication Date 11/10/23 Single Vaccine 21 Eligibility Eligibility Date Funding Source Not [facility] Eligible 11/10/23 Private Assessment and Plan Assessment & Plan (1) Physical exam: Code(s): Z00.00 - Encounter for general adult medical examination without abnormal findings Plan: Repeat in a year. Orders: Orders Influenza [id number] Immunization Today Z23 - Encounter for immunization Coding Level of Care Code Est Pt Prev Care 18-39y(07529) Diagnoses Physical exam Z00.00 Additional Codes JAMSHID-7 Assessment Billing - JAMSHID-7 Assessment Tool: JAMSHID-7 Assessment 24417 ([id number]) Time Spent (min) 31
== END 2023-11-10 11:08 | disposition home or self-care (01) ==
PROVIDERS: PCP Internal Medicine; Visit Provider Internal Medicine
DX: Z00.00 Encounter for general adult medical examination without abnormal findings (principal); Z23 Encounter for immunization
CPT/HCPCS: 90471; 90686; 99395